=== PATIENT | male | born 1950 | race Caucasian/White ===

== ENCOUNTER → 2023-12-08 11:39 | Outpatient (REF) | payer OTHER, SELFPAY | LOC: RCS 11:39 | PROVIDERS: ATTENDING PHYSICIAN Internal Medicine Pulmonary Disease; FAMILY PHYSICIAN Family Medicine; REFERRING PHYSICIAN Internal Medicine Cardiovascular Disease | DX: J84.112 Idiopathic pulmonary fibrosis (principal) | CPT/HCPCS: 93005 ==

== ENCOUNTER 2024-01-28 13:15 | Outpatient (RCR) | payer OTHER, SELFPAY | END 2024-01-29 09:04 | disposition home or self-care (01) | LOC: PURB 13:15 | PROVIDERS: ATTENDING PHYSICIAN Internal Medicine Pulmonary Disease; FAMILY PHYSICIAN Family Medicine | DX: J84.112 Idiopathic pulmonary fibrosis (principal) | CPT/HCPCS: G0237; G0239 ==

== ENCOUNTER 2024-02-25 13:15 | Outpatient (RCR) | payer OTHER, SELFPAY | END 2024-02-29 10:04 | disposition home or self-care (01) | LOC: PURB 13:15 | PROVIDERS: ATTENDING PHYSICIAN Internal Medicine Pulmonary Disease; FAMILY PHYSICIAN Family Medicine | DX: J84.112 Idiopathic pulmonary fibrosis (principal) | CPT/HCPCS: G0239 ==

== ENCOUNTER 2024-03-31 13:15 | Outpatient (RCR) | payer OTHER, SELFPAY | END 2024-03-31 15:00 | disposition home or self-care (01) | LOC: PURB 13:15 | PROVIDERS: ATTENDING PHYSICIAN Internal Medicine Pulmonary Disease; FAMILY PHYSICIAN Family Medicine | DX: J84.112 Idiopathic pulmonary fibrosis (principal) | CPT/HCPCS: G0239 ==

== ENCOUNTER 2024-04-12 13:15 | Outpatient (RCR) | payer OTHER, SELFPAY | END 2024-04-13 10:39 | disposition home or self-care (01) | LOC: PURB 13:15 | PROVIDERS: ATTENDING PHYSICIAN Internal Medicine Pulmonary Disease; FAMILY PHYSICIAN Family Medicine | DX: J84.112 Idiopathic pulmonary fibrosis (principal) | CPT/HCPCS: G0239 ==